=== PATIENT | female | born 1970 | race Caucasian/White ===

== ENCOUNTER 2017-11-02 19:16 | Emergency (ER) | payer BC ==
--- NOTE | 2017-11-02 20:23 | ER Document Report ---
ED Flu Like - General Chief Complaint: Flu Symptoms Stated Complaint: POSSIBLE FLU SYMPTOMS Time Seen by Provider: 11/02/17 19:46 Mode of Arrival: Ambulatory Information source: Patient Notes: 27-year-old female presents to ED for complaint of cough cold congestion body aches fever headache and frequent urination. She states she has been exposed to the flu. States she has been sick since Wednesday with temperature since Wednesday. TRAVEL OUTSIDE OF THE [place] IN LAST 30 DAYS: No - HPI Onset: Other - Wednesday Timing/Duration: Intermittent Quality of pain: Achy Severity: Moderate Pain Level: 3 CO exposure: No Associated symptoms: Body/muscle aches, Nonproductive cough, Fever, Headache, Nausea, Rhinnorhea, Sinus pain/drainage Similar symptoms previously: Yes Recently seen / treated by doctor: No - Related Data Allergies/Adverse Reactions: No Known Allergies Allergy (Verified 09/22/15 11:28) Past Medical History - General Information source: Patient - Social History Smoking Status: Current Some Day Smoker Cigarette use (# per day): No - Vapor Chew tobacco use (# tins/day): No Smoking Education Provided: No Frequency of alcohol use: Rare Drug Abuse: None Occupation: home Lives with: Family Family History: Arthritis, CAD, COPD, CVA, DM, Hyperlipidemia, Hypertension, Malignancy, Thyroid Disfunction Patient has suicidal ideation: No Patient has homicidal ideation: No - Past Medical History Cardiac Medical History: Reports: None Pulmonary Medical History: Reports: None EENT Medical History: Reports: None Neurological Medical History: Reports: None Endocrine Medical History: Reports: None Renal/ Medical History: Reports: None Malignancy Medical History: Reports: None GI Medical History: Reports: None Musculoskeltal Medical History: Reports Hx Arthritis - Osteoarthritis rheumatoid arthritis and osteoporosis, Reports Hx Musculoskeletal Deformity, Reports Hx Musculoskeletal Trauma Skin Medical History: Reports None Psychiatric Medical History: Reports: None Traumatic Medical History: Reports: None Infectious Medical History: Reports: None Past Surgical History: Reports: Hx Hysterectomy, Hx Orthopedic Surgery - Back surgery - Immunizations Immunizations up to date: Yes Hx Diphtheria, Pertussis, Tetanus Vaccination: Yes Review of Systems - Review of Systems Notes: Constitutional: [PRESENT: as per HPI. ABSENT: weight gain, weight loss] complains of headache fever chills body aches Eyes: [ABSENT: visual disturbances] Ears: [ABSENT: hearing changes] Nasopharyngeal: Complains of runny nose congestion sore throat Cardiovascular: [ABSENT: chest pain, dyspnea on exertion, edema, orthropnea, palpitations] Respiratory: [ABSENT: , hemoptysis] planes of nonproductive cough Gastrointestinal: [ABSENT: abdominal pain, constipation, diarrhea, hematemesis, hematochezia, nausea, vomiting] Genitourinary: [ABSENT: dysuria, hematuria] Musculoskeletal: [ABSENT: joint swelling] body aches Integumentary: [ABSENT: rash, wounds] Neurological: [ABSENT: abnormal gait, abnormal speech, confusion, dizziness, focal weakness, syncope] Psychiatric: [ABSENT: anxiety, depression, homicidal ideation, suicidal ideation ] Endocrine: [ABSENT: cold intolerance, heat intolerance, menstrual abnormalities , polydipsia, polyuria] Hematologic/Lymphatic: [ABSENT: easy bleeding, easy bruising, lymphadenopathy] Physical Exam - Vital signs Vitals: Temp Pulse Resp BP Pulse Ox 101.3 F H 115 H 18 147/90 H 100 11/02/17 19:27 11/02/17 19:27 11/02/17 19:27 11/02/17 19:27 11/02/17 19:27 - Notes Notes: PHYSICAL EXAMINATION: GENERAL: 47-year-old female well-appearing, well-nourished and in no acute distress. HEAD: Atraumatic, normocephalic. EYES: Pupils equal round and reactive to light, extraocular movements intact, conjunctiva are normal. ENT: Nasal turbinates red swollen whitish yellow mucus with postnasal drip to oral mucosa NECK: Normal range of motion, supple without lymphadenopathy LUNGS: Breath sounds clear to auscultation bilaterally and equal. No wheezes rales or rhonchi. HEART: Regular rate and rhythm without murmurs ABDOMEN: Soft, nontender, nondistended abdomen. No guarding, no rebound. No masses appreciated. Analysis was negative Female : deferred Musculoskeletal: Normal range of motion, no pitting or edema. No cyanosis. No muscle tenderness when palpation NEUROLOGICAL: Cranial nerves grossly intact. Normal speech, normal gait. Normal sensory, motor exams PSYCH: Normal mood, normal affect. SKIN: Warm, Dry, normal turgor, no rashes or lesions noted. Course - Re-evaluation Re-evalutation: 11/02/17 21:52 UA negative for any signs or symptoms of a UTI. Patient's assessment consistent with an upper respiratory infection. Patient has had a hysterectomy so she has been treated with Claritin 10 mg, Sudafed 30 mg, Mucinex 600 mg, and ibuprofen 800 mg for her cough cold and body aches. Her vital signs on discharge were temperature 99.7 pulse 90 respirations 80 pulse ox 97 and blood pressure 130/70 in the right arm. Patient has been instructed to follow-up with her primary doctor by telephone tomorrow and have a visit within the next 24-48 hours. - Vital Signs Vital signs: Temp Pulse Resp BP Pulse Ox 99.7 F 90 18 130/70 H 97 11/02/17 21:33 11/02/17 21:33 11/02/17 21:33 11/02/17 21:33 11/02/17 21:33 - Laboratory Laboratory results interpreted by me: 11/02/17 20:23 Urine Ketones 20 H Discharge - Discharge Clinical Impression: Viral syndrome URI (upper respiratory infection) Qualifiers: URI type: unspecified URI Qualified Code(s): J06.9 - Acute upper respiratory infection, unspecified Condition: Stable Disposition: HOME, SELF-CARE Instructions: Family Physicians / Practices Additional Instructions: Viral Syndrome The physician has diagnosed a viral infection. Viruses not only cause "colds," but can cause many different symptoms including generalized aching, fever, headache, cough, diarrhea, nausea, vomiting, and fatigue. The treatment, for the most part, is simply relief of symptoms. This means that antibiotics are usually not given. Rest, fluids, pain medications and, occasionally, medication for the specific symptoms that are most bothersome will be prescribed. Use good handwashing to avoid passing the virus to others. Shared toys should be cleaned with disinfectant. Clean the toilets, sinks, and counter surfaces in bathrooms. Launder clothing in hot water. Contact the physician if you develop any new or unusual symptoms such as severe headache, stiff neck, high fever, chest pain, productive cough, or shortness of breath. You should be rechecked if you don't see marked improvement within seven to 10 days. UPPER RESPIRATORY ILLNESS: You have a viral infection of the respiratory passages -- a "cold." This common infection causes nasal congestion, drainage, and often sore throat and cough. It is highly contagious. The disease usually lasts about 10 to 14 days. There is no "cure" for the viral infection -- it must run its course. If there is a complication, such as bacterial infection in the nose, sinuses, middle ear, or bronchial tubes, antibiotics may be required. The antibiotics won't affect the virus. Drink plenty of fluids. A humidifier may help. An expectorant medication or decongestant may make you more comfortable. Use acetaminophen or ibuprofen for fever or aches. See the doctor if fever persists over two days, if there is any significant worsening of your symptoms, or if you simply fail to improve as expected. DECONGESTANT MEDICATION: A decongestant medicine has been suggested. Often this medicine is combined in the same tablet with an antihistamine or expectorant. This type of medicine is helpful in treating a bad cold or sinus condition, as well as in treatment of the nasal congestion of hay fever. It is not of much benefit for lung infections. Decongestant medicines are related to stimulants. They can cause an increase in blood pressure and heart rate. Persons with heart disease and high blood pressure should not take decongestants without discussing this with the physician. If you develop palpitations, chest pain, headache, or tremors, stop the medicine and consult your physician. COUGH-SUPPRESSANT & EXPECTORANT MEDICATION: You are to use a cough medication as needed for relief of symptoms. This medicine is a combination of an expectorant (to make the mucous thinner and more easily "coughed up") and a cough suppressant (to reduce the frequency of coughing). The cough-suppressant medicine is related to narcotics. You may experience mild nausea and sleepiness. Some patients who are very sensitive to narcotics may have stomach pain from this medicine. Taking the medicine with food reduces these side effects. Do not drive or work with machinery until you know how this medicine affects you. The expectorant should have no side effects. Iodine-containing expectorants (such as organidin) should not be taken by persons with active thyroid disease unless approved by your doctor. Call the doctor if you develop shortness of breath, hives, rash, itching, lightheadedness, or severe nausea and vomiting. USE OF ACETAMINOPHEN (Tylenol): Acetaminophen may be taken for pain relief or fever control. It's much safer than aspirin, offering a wider range of "safe" dosages. It is safe during . Some brand names are Tylenol, Panadol, Datril, Anacin 3, Tempra, and Liquiprin. Acetaminophen can be repeated every four hours. The following are maximum recommended dosages: >89 pounds or adults 650 mg to 900 mg Acetaminophen can be repeated every four hours. Maximum dose not to exceed 4000 mg a day. SMOKING: If you smoke, you should stop smoking. The tar and chemicals in cigarette smoke are harmful. Smoking has been shown to cause: emphysema chronic bronchitis lung cancer mouth and throat cancer stomach and pancreas cancer premature aging defects In addition, smoking increases ear and lung infections in children of smokers. You will treated with Claritin 10 mg Sudafed 30 mg Mucinex 600 mg and ibuprofen 800 mg for your cough cold congestion and body aches. Please follow-up with your primary doctor within the next 24-48 hours. Please use Tylenol Motrin alternating every 4 hours for your pain and fever. Please be sure to drink plenty of fluids. As we have discussed it is been more than 48 hours since her symptoms and your fever started so you are no longer eligible for Tamiflu if it is the flu. Treat symptoms as we have discussed. FOLLOW-UP CARE: If you have been referred to a physician for follow-up care, call the physician s office for an appointment as you were instructed or within the next two days. If you experience worsening or a significant change in your symptoms, notify the physician immediately or return to the Emergency Department at any time for re-evaluation. Prescriptions: Ibuprofen 800 mg PO Q8HP PRN #20 tablet PRN Reason: Forms: Elevated Blood Pressure, Return to Work
[2017-11-02 20:38] LABS: APPEARANCE,URINE CLEAR; BILIRUBIN,URINE NEGATIVE (NEGATIVE); COLOR,URINE YELLOW; GLUCOSE, URINE NEGATIVE (NEGATIVE); KETONES,URINE 20 mg/dL (NEGATIVE); LEUKOCYTE ESTERASE,URINE NEGATIVE (NEGATIVE); NITRITE,URINE NEGATIVE (NEGATIVE); PROTEIN,URINE NEGATIVE (NEGATIVE); URINE SPECIFIC GRAVITY 1.014; UROBILINOGEN,URINE NEGATIVE mg/dL (<2.0)
[2017-11-02] MEDS ORDERED: IBUPROFEN 800 MG TABLET PO ONE (20:52)
[2017-11-02] MEDS ORDERED: LORATADINE 10 MG TABLET PO ONE (21:39)
[2017-11-02] MEDS ORDERED: PSEUDOEPHEDRINE HCL 30 MG TABLET PO ONE (21:39)
[2017-11-02] MEDS ORDERED: GUAIFENESIN 600 MG TABLET.SA PO ONE (21:39)
[2017-11-02 23:32] VITALS: BP 135/97
== END 2017-11-02 22:34 | disposition home or self-care (01) ==
LOC: ER 19:16
DX: B34.9 Viral infection, unspecified (principal); J06.9 Acute upper respiratory infection, unspecified; M79.1 Myalgia; R50.9 Fever, unspecified; R51 Headache; R35.0 Frequency of micturition; F17.200 Nicotine dependence, unspecified, uncomplicated
CPT/HCPCS: 81001; 87086; 99283